=== PATIENT | female | born 1960 | race Caucasian/White ===

== ENCOUNTER 2019-07-21 03:54 | Emergency (ER) | payer BC ==
[~2019-07-21] VITALS: Ht 162.6 cm; Wt 81.6 kg
[2019-07-21 06:35] VITALS: BP 122/71
== END 2019-07-21 07:27 | disposition home or self-care (01) ==
LOC: EDBD 04:06 → ER 04:06
DX: J84.10 Pulmonary fibrosis, unspecified (principal); R09.1 Pleurisy
CPT/HCPCS: 71046

== ENCOUNTER 2019-07-27 11:36 | Emergency (ER) | payer BC ==
[~2019-07-27] VITALS: Ht 162.6 cm; Wt 86.2 kg
[2019-07-27 14:02] VITALS: BP 108/66
== END 2019-07-27 15:51 | disposition home or self-care (01) ==
LOC: ER 11:39
DX: B02.9 Zoster without complications (principal); Z88.2 Allergy status to sulfonamides; Z88.6 Allergy status to analgesic agent

== ENCOUNTER 2020-09-26 12:41 | Emergency (ER) | payer BC ==
[~2020-09-26] VITALS: Ht 162.6 cm; Wt 90.7 kg
[2020-09-26 12:46] VITALS: BP 135/80
== END 2020-09-26 16:26 | disposition home or self-care (01) ==
LOC: ER 12:46
DX: N39.0 Urinary tract infection, site not specified (principal); M54.5 Low back pain; Z88.2 Allergy status to sulfonamides; Z88.5 Allergy status to narcotic agent
CPT/HCPCS: 81002